=== PATIENT | female | born 1960 | race Two or more races ===

== ENCOUNTER 2020-12-24 10:15 | Inpatient (IN) | payer OTHER ==
[~2020-12-24] VITALS: Ht 154.9 cm; Wt 57.2 kg
[2020-12-29] MEDS ORDERED: INTESTINEX680 M1 PO (11:20)
[2020-12-29] MEDS ORDERED: LEVSIN/SL0.125 MG SL (11:20)
[2020-12-29] MEDS ORDERED: ULTRAM50 MG PO (11:20)
== END 2020-12-29 12:05 | disposition home or self-care (01) | DRG 331 ==
LOC: EDSTATUS 10:15 → ADM 10:15 → SURG 12-26 08:16 → O/R 12-26 08:16 → SURH 12-26 10:15 → SURG 12-26 17:37
PROVIDERS: ADMIT Surgery; ATTEND Surgery
PROC: 0DTP4ZZ Resection of Rectum, Percutaneous Endoscopic Approach (ICD-10-PCS; 2020-12-26)
PROC: 3E0F7SF Introduction of Other Gas into Respiratory Tract, Via Natural or Artificial Opening (ICD-10-PCS; 2020-12-26)
PROC: 0DBN4ZZ Excision of Sigmoid Colon, Percutaneous Endoscopic Approach (ICD-10-PCS; principal; 2020-12-26 12:15)
DX: K56.600 Partial intestinal obstruction, unspecified as to cause (principal); K57.30 Diverticulosis of large intestine without perforation or abscess without bleeding; F17.200 Nicotine dependence, unspecified, uncomplicated